=== PATIENT | male | born 1975 | race Hispanic/Latino ===

== ENCOUNTER 2018-07-12 13:34 | Emergency (ER) | payer SELFPAY ==
[2018-07-12] MEDS ORDERED: Acetaminophen 500 MG TAB ONE (14:08)
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
== END 2018-07-12 14:32 | disposition home or self-care (01) ==
LOC: SCSER 13:34
DX: S06.9X9A Unspecified intracranial injury with loss of consciousness of unspecified duration, initial encounter (principal); E11.9 Type 2 diabetes mellitus without complications; W22.8XXA Striking against or struck by other objects, initial encounter; Y92.69 Other specified industrial and construction area as the place of occurrence of the external cause; Y99.0 Civilian activity done for income or pay
CPT/HCPCS: 70450